=== PATIENT | female | born 2000 | race Caucasian/White ===

== ENCOUNTER 2018-02-28 00:20 | Emergency (ER) | payer BC, OTHER ==
[2018-02-28] MEDS ORDERED: DEXAMETHASONE 10 MG/ML VIAL IVP ONE (00:39)
[2018-02-28] MEDS ORDERED: NS 1,000 ML IV ONE ×2 (00:39→01:42)
[2018-02-28] MEDS ORDERED: KETOROLAC 15 MG/1 ML SDV IVP ONE (00:39)
[2018-02-28] MEDS ORDERED: METOCLOPRAMIDE 10 MG/2 ML VIAL IVP ONE (00:41)
--- NOTE | 2018-02-28 00:44 | EDPHY ---
H & P Stated Complaint: GRAMAJO Time Seen by Provider: 02/28/18 00:28 HPI/ROS: HPI The patient presents with headache which has been present for the last 4 days and is on improved. She feels this in her occipital region and neck, it is throbbing in nature. It is associated with nausea and photophobia. It started slowly and she took a dose of sumatriptan, however this did not resolve her symptoms. She has taken Tylenol and Zofran today as well with minimal improvement. Three days ago she went to [facility] and received Toradol IV. She has a history of migraine headaches and the nature of this headache is very similar to her migraine. Normally when she treats her headaches with sumatriptan she feels much better. She believes her headache was triggered from lack of sleep. REVIEW OF SYSTEMS 10 systems were reviewed and negative with the exception of the elements mentioned in the history of present illness. PMHx: Migraine headaches Soc Hx: College student PHYSICAL General Appearance: Alert, no distress Eyes: Pupils equal and round no pallor or injection ENT, Mouth: Mucous membranes moist Respiratory: There are no retractions, lungs are clear to auscultation Cardiovascular: Regular rate and rhythm Gastrointestinal: Abdomen is soft and non-tender, no masses, bowel sounds normal Neurological: A&O, cranial nerves 2-12 intact, 5/5 strength in upper and lower extremities which is symmetric, normal finger to nose testing Skin: Warm and dry, no rashes Musculoskeletal: Neck is supple non tender Extremities: symmetrical, full range of motion Psychiatric: Patient is oriented X 3, there is no agitation Source: Patient Exam Limitations: No limitations - Personal History LMP (Females 10-55): 22-28 Days Ago Current Tetanus/Diphtheria Vaccine: Unsure Current Tetanus Diphtheria and Acellular Pertussis (TDAP): Unsure - Medical/Surgical History Hx Asthma: No Hx Chronic Respiratory Disease: No Hx Diabetes: No Hx Cardiac Disease: No Hx Renal Disease: No Hx Cirrhosis: No Hx Alcoholism: No Hx HIV/AIDS: No Hx Splenectomy or Spleen Trauma: No Other PMH: depression ADHD - Social History Smoking Status: Never smoked Constitutional: Initial Vital Signs Temperature (C) 36.8 C 02/28/18 00:21 Heart Rate 92 02/28/18 00:21 Respiratory Rate 16 02/28/18 00:21 Blood Pressure 121/87 H 02/28/18 00:21 O2 Sat (%) 95 02/28/18 00:21 O2 Delivery Mode Room Air Allergies/Adverse Reactions: No Known Allergies Allergy (Unverified 02/28/18 00:23) Medical Decision Making Differential Diagnosis: 17-year-old female with history of migraine presents with 4 days of persistent headache which is occipital, throbbing, associated with nausea and photophobia. On exam, she is generally well-appearing with a normal neurologic evaluation. Differential diagnosis includes migraine headache, tension type headache, I have considered meningitis, however she does not have any nuchal rigidity or fever. In the emergency department, patient was treated with medication for pain the IV fluids. On reassessment she was feeling much better though still had some headache. She was given an additional dose of Phenergan and then felt much better. We did check basic labs which did demonstrate leukopenia of uncertain significance. She has a negative Monospot test.. I feel she is most likely suffering from a migraine headache. I have encouraged her to take Excedrin migraine tomorrow for headache continues and follow up with [facility]. She is in agreement with this plan. - Data Points Laboratory Results: Laboratory Results 02/28/18 00:30 02/28/18 00:30 02/28/18 02/28/18 02/28/18 00:30 00:30 00:30 WBC 3.46 10^3/uL L 10^3/uL (3.80-9.50) RBC 5.42 10^6/uL H 10^6/uL (4.18-5.33) Hgb 15.1 g/dL g/dL (12.6-16.3) Hct 43.9 % % (38.0-47.0) MCV 81.0 fL L fL (81.5-99.8) MCH 27.9 pg pg (27.9-34.1) MCHC 34.4 g/dL g/dL (32.4-36.7) RDW 12.3 % % (11.5-15.2) Plt Count 163 10^3/uL 10^3/uL (150-400) MPV 10.5 fL fL (8.7-11.7) Neut % (Auto) 50.9 % % (39.3-74.2) Lymph % (Auto) 34.1 % % (15.0-45.0) [place] % (Auto) 12.1 % % (4.5-13.0) Eos % (Auto) 1.4 % % (0.6-7.6) Baso % (Auto) 1.2 % % (0.3-1.7) Nucleat RBC Rel Count 0.0 % % (0.0-0.2) Absolute Neuts (auto) 1.76 10^3/uL 10^3/uL (1.70-6.50) Absolute Lymphs (auto) 1.18 10^3/uL 10^3/uL (1.00-3.00) Absolute Monos (auto) 0.42 10^3/uL 10^3/uL (0.30-0.80) Absolute Eos (auto) 0.05 10^3/uL 10^3/uL (0.03-0.40) Absolute Basos (auto) 0.04 10^3/uL 10^3/uL (0.02-0.10) Absolute Nucleated RBC 0.00 10^3/uL 10^3/uL (0-0.01) Immature Gran % 0.3 % % (0.0-1.1) Immature Gran # 0.01 10^3/uL 10^3/uL (0.00-0.10) RBC/WBC/PLT Morphology TNP Platelet Estimate TNP Sodium 137 mEq/L mEq/L (135-145) Potassium 4.4 mEq/L mEq/L (3.3-5.0) Chloride 105 mEq/L mEq/L (97-110) Carbon Dioxide 21 mEq/l L mEq/l (22-31) Anion Gap 11 mEq/L mEq/L (8-16) BUN 13 mg/dL mg/dL (7-23) Creatinine 0.7 mg/dL mg/dL (0.6-1.0) Estimated GFR > 60 Glucose 85 mg/dL mg/dL (70-100) Calcium 9.8 mg/dL mg/dL (8.5-10.4) Monoscreen NEGATIVE (NEGATIVE) Medications Given: Discontinued Medications Dexamethasone (Decadron Injection) 10 mg IVP EDNOW ONE Stop: 02/28/18 00:40 Last Admin: 02/28/18 00:44 Dose: 10 mg Sodium Chloride (Ns) 1,000 mls @ 0 mls/hr IV EDNOW ONE; Wide Open PRN Reason: Protocol Stop: 02/28/18 00:40 Last Admin: 02/28/18 00:45 Dose: 1,000 mls Sodium Chloride (Ns) 1,000 mls @ 3,000 mls/hr IV EDNOW ONE Stop: 02/28/18 02:01 Last Admin: 02/28/18 01:57 Dose: 1,000 mls Ketorolac Tromethamine (Toradol) 15 mg IVP EDNOW ONE Stop: 02/28/18 00:40 Last Admin: 02/28/18 00:44 Dose: 15 mg Metoclopramide HCl (Reglan Injection) 10 mg IVP EDNOW ONE Stop: 02/28/18 00:42 Last Admin: 02/28/18 00:44 Dose: 10 mg Promethazine HCl (Phenergan) 6.25 mg IVP EDNOW ONE Stop: 02/28/18 01:44 Last Admin: 02/28/18 01:58 Dose: 6.25 mg Departure - Departure Disposition: Home, Routine, Self-Care Clinical Impression: Migraine headache Condition: Good Instructions: Migraine Headache (ED) Additional Instructions: I recommend that you try Excedrin migraine if your headache continues tomorrow. If your worse in any way, you should return to the emergency department. Otherwise you should follow up with the [facility] in 1-2 days. Referrals: CONSTANTIN VASQUEZ [Other] - As per Instructions
[2018-02-28 01:09] LABS: PLATELET COUNT 163 10^3/uL (150-400)
[2018-02-28] MEDS ORDERED: PROMETHAZINE HCL 25 MG/ML INJ IVP ONE (01:43)
[2018-02-28 02:45] VITALS: BP 106/63
== END 2018-02-28 02:45 | disposition home or self-care (01) ==
DX: G43.909 Migraine, unspecified, not intractable, without status migrainosus (principal); E86.9 Volume depletion, unspecified
CPT/HCPCS: 96374; J1100; J1885; J2550; J2765

== ENCOUNTER 2018-07-31 13:51 | Emergency (ER) | payer BC ==
--- NOTE | 2018-07-31 14:02 | EDPHY ---
General - History Smoking Status: Never smoked Time Seen by Provider: 07/31/18 14:02 Narrative: CLINICAL IMPRESSION: UTI/Pyelonephritis ASSESSMENT/PLAN: Patient is a 18-year-old female with a history of anxiety and attention deficit hyperactivity disorder who presents with dysuria, nausea, vomiting and lower abdominal pain. Her abdomen is soft with mild suprapubic tenderness to palpation, no peritoneal signs and no evidence of a surgical abdomen. She had no complaints of flank tenderness on arrival, no CVA tenderness bilaterally. Urinalysis was turbid appearing and revealed 3+ leukocyte esterase, 5-10 RBCs, 50-180 WBCs and 2+ bacteria consistent with acute urinary tract infection. CBC with mild leukocytosis, BMP grossly unremarkable. History and physical examination is most consistent with UTI, likely early pyelonephritis. She did have mild suprapubic tenderness to palpation which I believe is secondary to her acute urinary tract infection, no clinical findings to suggest other etiologies to include appendicitis, cholecystitis, kidney stone , pancreatitis, pyelonephritis, ACS, perforated viscus, diverticulitis, hernia, AAA, mesenteric ischemia, or additional emergent intra-abdominal process. She had no pelvic complaints to suggest TOA, PID or ovarian torsion. negative, rules out ectopic . The patient was given Rocephin, IV fluids and antiemetic with improvement of her symptoms, she will continue Ceftin and follow up with her PCP. On repeat examination prior to discharge the patient reports she is feeling much better, her abdomen is soft with very mild tenderness to palpation in the suprapubic region, no peritoneal signs or evidence of a surgical abdomen. Patient does not have a PCP, referral has been provided and she understands the importance of close follow-up and establishing care. Strict return precautions discussed-patient to return for development of fever, chills, nausea, vomiting, worsening abdominal pain, development of recurrent flank pain, decreased urinary output or for any other concerning symptom. Patient verbalizes understanding and she is in agreement with this plan. DIFFERENTIAL DX: Abdominal pain in a female including but not limited to ovarian cyst, pelvic inflammatory disease, ovarian torsion, urinary tract infection, and appendicitis. ED COURSE: 1425: Case discussed with Dr. Coleman 1435: Dr. Coleman evaluated this patient, agrees with following plan of care- IV fluids, symptom control and will give Rocephin for acute UTI. 1517: On repeat examination the patient reports she is feeling much better, complains only of mild suprapubic tenderness. Her abdominal exam reveals mild suprapubic tenderness to palpation without evidence of a surgical abdomen. CHIEF COMPLAINT: Dysuria, nausea, vomiting and lower abdominal pain HPI: Patient is a 18-year-old female with a history of attention deficit hyperactivity disorder and anxiety who presents to the emergency department with 3 days of dysuria, nausea, vomiting and lower abdominal pain today. Patient reports 3 days ago she started to have intermittent pain with urination , this is progressively gotten worse and she is now experiencing constant discomfort as well as suprapubic discomfort. Patient endorses heavy alcohol consumption last evening, has subsequently had nausea and vomiting today which she feels is directly related to the alcohol. She has felt chilled, no documented fevers. She denies any chest pain, shortness of breath or change in bowel habits. She denies any hematemesis. She has not had any hematuria or increased frequency. No history of frequent UTIs. She is not currently sexually active, last menstrual period was normal 3 weeks prior. She has no concern for STI. Denies any vaginal pain, vaginal bleeding or vaginal discharge. PMH: Attention deficit hyperactivity disorder, anxiety Pertinent Past Surgical History: Denies Family History: Noncontributory Social History: Occasional alcohol, denies illicit drug use or cigarette smoking REVIEW OF SYSTEMS: All other systems negative Constitutional: Chills, decreased appetite. Eyes: No discharge, vision change ENT: No sore throat, congestion, ear pain. Cardiovascular: No chest pain, no palpitations. Respiratory: No cough, no shortness of breath. Gastrointestinal: Nausea, vomiting, lower abdominal pain. Genitourinary: Dysuria, denies flank pain. Musculoskeletal: No back pain, joint swelling, joint pain, myalgias. Skin: No rashes, color change. Neurological: No headache, dizziness, weakness. PHYSICAL EXAM: General Appearance: Tired appearing however not toxic-appearing. HENT: Normocephalic, atraumatic. Bilateral external ears are normal. Bilateral tympanic membranes are normal with pearly gayle reflex. Nares are clear, mucosa is pink. Oropharynx is clear, mucosa is mildly dry, uvula is midline. There is no tonsillar enlargement or exudate. The dentition is normal. Eyes: PERRLA, EOMI intact. Conjunctiva pink, no pallor or injection. Neck: Supple, nontender, no lymphadenopathy, no midline pain, FROM, no meningismus. Respiratory: There are no retractions, lungs are clear to auscultation. Cardiac: Regular rate and rhythm, no murmurs or gallops. Gastrointestinal: Patient's abdomen is soft and nondistended. She has mild tenderness to palpation in the suprapubic region without rebound or guarding. Bowel sounds are present, no masses or hernias appreciated. Neurological: Alert and oriented x 3, CN 2-12 grossly intact, normal gait no ataxia, DTR's intact, normal sensation and strength Skin: Warm, dry, no rashes, no nodules on palpation. Musculoskeletal: Extremities are symmetrical, full range of motion, no tenderness, deformity, swelling, or erythema. Psychiatric: Patient is oriented X 3, there is no agitation. MEDICAL DECISION MAKING: Patient was seen independently. Secondary supervising physician at time of evaluation was Dr. Coleman, he also evaluated this patient. Diagnosis: Pyelonephritis. New, requires workup Summary: See Assessment and Plan for summary of ED visit Clinical lab tests: ordered / reviewed. Independent visualization of images, tracing, or specimens: Not applicable. Decision to obtain medical records or history from someone other than the patient: No Review / Summarize previous medical records: Yes Discussed patient with another provider: Yes , Dr. Coleman. Patient Progress: Stable, discharged. (Maria Isabel Woodard) Medical Decision Making: PHYSICIAN DOCUMENTATION: The patient was evaluated and managed by the Physician Plastics Spreading Machine Operator and myself. I have reviewed the chart and agree with the findings and plan of care as documented. In addition, I examined the patient myself at 1430. History confirmed as dysuria nausea and vomiting today. Physical findings as follows: Abdomen soft nontender. Specifically nontender over McBurney's point. Urinalysis reviewed with the patient. I think it is reasonable to treat her with IV fluids and antiemetics, IV and oral antibiotics. The think appendicitis or PID or ovarian torsion or ectopic is unlikely. Labs are pending. I am the secondary supervising physician. (Joe Coleman) - Objective Vital Signs: Initial Vital Signs Temperature (C) 36.5 C 07/31/18 13:56 Heart Rate 88 07/31/18 13:56 Respiratory Rate 18 07/31/18 13:56 Blood Pressure 121/88 H 07/31/18 13:56 O2 Sat (%) 97 07/31/18 13:56 O2 Delivery Mode Room Air Allergies/Adverse Reactions: No Known Allergies Allergy (Verified 07/31/18 13:54) Home Medications: Medication Instructions Recorded Cefuroxime Axetil [Ceftin (*)] 500 mg PO BID 7 Days tab 07/31/18 Ondansetron Odt [Zofran Odt] 4 mg PO Q8 PRN #5 tab 07/31/18 Ortho Tri-Cyclen Lo Tablet 07/31/18 Prozac 20 MG (*) 07/31/18 Laboratory Results: Laboratory Results 07/31/18 14:20 07/31/18 14:20 07/31/18 07/31/18 07/31/18 14:20 14:20 14:20 WBC 12.24 10^3/uL H 10^3/uL (3.80-9.50) RBC 5.12 10^6/uL 10^6/uL (4.18-5.33) Hgb 14.3 g/dL g/dL (12.6-16.3) Hct 42.0 % % (38.0-47.0) MCV 82.0 fL fL (81.5-99.8) MCH 27.9 pg pg (27.9-34.1) MCHC 34.0 g/dL g/dL (32.4-36.7) RDW 12.5 % % (11.5-15.2) Plt Count 279 10^3/uL 10^3/uL (150-400) MPV 10.1 fL fL (8.7-11.7) Neut % (Auto) 83.9 % H % (39.3-74.2) Lymph % (Auto) 10.5 % L % (15.0-45.0) [place] % (Auto) 5.0 % % (4.5-13.0) Eos % (Auto) 0.1 % L % (0.6-7.6) Baso % (Auto) 0.2 % L % (0.3-1.7) Nucleat RBC Rel Count 0.0 % % (0.0-0.2) Absolute Neuts (auto) 10.27 10^3/uL H 10^3/uL (1.70-6.50) Absolute Lymphs (auto) 1.28 10^3/uL 10^3/uL (1.00-3.00) Absolute Monos (auto) 0.61 10^3/uL 10^3/uL (0.30-0.80) Absolute Eos (auto) 0.01 10^3/uL L 10^3/uL (0.03-0.40) Absolute Basos (auto) 0.03 10^3/uL 10^3/uL (0.02-0.10) Absolute Nucleated RBC 0.00 10^3/uL 10^3/uL (0-0.01) Immature Gran % 0.3 % % (0.0-1.1) Immature Gran # 0.04 10^3/uL 10^3/uL (0.00-0.10) Sodium 140 mEq/L mEq/L (135-145) Potassium 4.3 mEq/L mEq/L (3.5-5.2) Chloride 110 mEq/L mEq/L (97-110) Carbon Dioxide 19 mEq/l L mEq/l (22-31) Anion Gap 11 mEq/L mEq/L (6-14) BUN 15 mg/dL mg/dL (7-23) Creatinine 0.6 mg/dL mg/dL (0.6-1.0) Estimated GFR > 60 Glucose 89 mg/dL mg/dL (70-100) Calcium 9.6 mg/dL mg/dL (8.5-10.4) Beta HCG, Qual NEGATIVE Urine Color Urine Appearance Urine pH Ur Specific [place] Urine Protein Urine Ketones Urine Blood Urine Nitrate Urine Bilirubin Urine Urobilinogen Ur Leukocyte Esterase Urine RBC Urine WBC Ur Epithelial Cells Urine Bacteria Urine Mucus Urine Glucose 07/31/18 14:00 WBC RBC Hgb Hct MCV MCH MCHC RDW Plt Count MPV Neut % (Auto) Lymph % (Auto) [place] % (Auto) Eos % (Auto) Baso % (Auto) Nucleat RBC Rel Count Absolute Neuts (auto) Absolute Lymphs (auto) Absolute Monos (auto) Absolute Eos (auto) Absolute Basos (auto) Absolute Nucleated RBC Immature Gran % Immature Gran # Sodium Potassium Chloride Carbon Dioxide Anion Gap BUN Creatinine Estimated GFR Glucose Calcium Beta HCG, Qual Urine Color YELLOW Urine Appearance MODERATELY TURBID Urine pH 9.0 H (5.0-7.5) Ur Specific [place] 1.023 (1.002-1.030) Urine Protein 2+ H (NEGATIVE) Urine Ketones TRACE H (NEGATIVE) Urine Blood NEGATIVE (NEGATIVE) Urine Nitrate NEGATIVE (NEGATIVE) Urine Bilirubin NEGATIVE (NEGATIVE) Urine Urobilinogen NEGATIVE EU EU (0.2-1.0) Ur Leukocyte Esterase 3+ H (NEGATIVE) Urine RBC 5-10 /hpf H /hpf (0-3) Urine WBC 50-182 /hpf H /hpf (0-3) Ur Epithelial Cells NONE SEEN /lpf /lpf (NONE-1+) Urine Bacteria 2+ /hpf H /hpf (NONE SEEN) Urine Mucus TRACE /lpf /lpf (NONE-1+) Urine Glucose NEGATIVE (NEGATIVE) Medications Given: Discontinued Medications Sodium Chloride (Ns) 1,000 mls @ 0 mls/hr IV ONCE ONE PRN Reason: Wide Open Stop: 07/31/18 14:10 Last Admin: 07/31/18 14:21 Dose: 1,000 mls Ceftriaxone Sodium/Dextrose (Rocephin 1 Gm (Premix)) 50 mls @ 100 mls/hr IV EDNOW ONE PRN Reason: Protocol Stop: 07/31/18 14:57 Last Admin: 07/31/18 14:40 Dose: 50 mls Ondansetron HCl (Zofran) 4 mg IVP Q4 PRN PRN Reason: Nausea/Vomiting, Can't Take PO Stop: 01/27/19 14:08 Last Admin: 07/31/18 14:21 Dose: 4 mg Point of Care Test Results: Urine Collection Date 07/31/18 Collection Time 14:08 HCG Results Negative Departure - Departure Disposition: Home, Routine, Self-Care Clinical Impression: Pyelonephritis Condition: Good Instructions: Urinary Tract Infection in Women (ED) Additional Instructions: DISCHARGE INSTRUCTIONS FROM YOUR DOCTOR Thank you for visiting our emergency department today. Please keep in mind that discharge from the emergency department does not mean that there is nothing wrong - it simply means that we have not identified an emergency condition that requires further evaluation or treatment in the hospital. You should always plan to follow up with primary care for re-evaluation of your condition in the next 2-3 days. Rest, push non-diuretic, non-caffeinated fluids, clear liquid diet, then a BRAT diet (bananas, rice, applesauce, toast), then slowly advance diet to normal. Attempt small frequent meals. Urinate regularly. Urinate after intercourse if sexually active. Ceftin antibiotic as prescribed every 12 hours. You received your first dose here today. Next dose in 12 hours. Consider over the counter probiotics to help prevent antibiotic associated diarrhea. Zofran as prescribed as needed for any recurrent nausea and/or vomiting. For pain control: You may take Tylenol, I recommend 500-1000 mg every 6-8 hours as needed. Take with food and a full glass of water. Stop taking if this is upsetting her stomach. Do not exceed 4000 mg in a 24 hr period. You may also take ibuprofen, recommend 400 mg every 6 hr. Take with food and a full glass of water. Stop taking if this upsets her stomach. Do not exceed 2400 mg in a 24 hr period. As discussed, a urine culture is pending at the lab. Your antibiotic may need to be changed. If it does, you will be contacted in the next 3-5 days by phone. Be sure we have a working phone number. Schedule a follow-up appointment with your primary care physician in the next 1- 2 days for re-evaluation. Bring a copy of your test results with you to that appointment. Return for increased or unmanageable pain, development of abdominal pain, groin pain, pelvic pain, back pain, flank pain, fever, chills, recurrent vomiting, vomiting blood or coffee grounds, diarrhea, constipation, bloody stool, black tarry stools, burning or pain with urination, bloody urine, inability to urinate , decreased urine output or other signs of dehydration, development of fever, chills, dizziness, weakness, fainting, difficulty breathing or swallowing, chest pain, coughing, coughing up blood, ankle swelling, or for any other new, worsening or worrisome symptoms. People present with illnesses and injuries in different ways, and it is always possible that we have missed something. You may always return for re-evaluation if symptoms worsen or if they are not improving or if you develop new/different symptoms. Again, thank you for choosing our emergency department. We hope that you feel better. Referrals: Mik Holder, [Doctor of Osteopathy] - 2-3 days, call for appt. (Please establish care with a primary care provider.) Prescriptions: Cefuroxime Axetil [Ceftin (*)] 500 mg PO BID 7 Days tab Ondansetron Odt [Zofran Odt] 4 mg PO Q8 PRN #5 tab PRN Reason: Nausea/Vomiting, Can'T Take Po
[2018-07-31] MEDS ORDERED: ONDANSETRON 4 MG/2 ML VIAL IVP PRN (14:09)
[2018-07-31] MEDS ORDERED: NS 1,000 ML IV ONE (14:09)
[2018-07-31 14:41] LABS: PLATELET COUNT 279 10^3/uL (150-400)
[2018-07-31 15:41] VITALS: BP 118/80
== END 2018-07-31 15:41 | disposition home or self-care (01) ==
DX: N39.0 Urinary tract infection, site not specified (principal)
CPT/HCPCS: 96365; J0696; J2405